=== PATIENT | female | born 1935 | race Caucasian/White ===

== ENCOUNTER → 2018-02-04 08:20 | Outpatient (CLI) | payer MEDICARE, MEDICAID, SELFPAY ==
--- NOTE | 2018-02-04 08:26 | MM_ITS ---
MM Dig screening mamm BI w/CAD ORDERING PHYSICIAN : Daphne Ignacio MD PATIENT AGE: 82 years GENDER: Female COMPARISON: Bilateral mammogram August 2015, March 04, 2015. Also September 2009 Bilateral breast ultrasound February 2015 and August 2015 INDICATION: ITS.REASON: SCREENING TECHNIQUE: Standard CC and MLO images were obtained. R2 CAD reviewed. FINDINGS: Mild asymmetric breast with areas of moderate breast density where there is somewhat decreased sensitivity. The fibrocystic changes and density make this a somewhat difficult breasts to evaluate but no significant new findings evident.. Follow-up in one year adequate RIGHT BREAST:No significant new findings.. Areas of density previously noted are again seen and stable or less evident Stable small round density at the far upper-outer quadrant left breast, measuring 6.5 mm is again noted stable since 2014. An stable since even studies from 2009. Follow-up in one year adequate LEFT BREAST:There is been regression of the previously identified cysts densities at the 12 & 3 o'clock position left breast since 1999 studies. Residual minimal density towards lateral left breast remain similar previous studies dating back to 2009, and can be followed in one year.. IMPRESSION: . No significant new findings. Regression of cystsat the left breast since 2015 and 2014 . Bilateral follow-up one year again recommended BI-RADS Category: 2 Benign Finding(s) RECOMMENDED FOLLOW-UP: 1YR 1 YEAR FOLLOW-UP (A letter has been sent to the patient regarding results of the study.)
== END ==
PROVIDERS: Family Provider Family Medicine; PCP Family Medicine; Visit Provider Family Medicine
DX: Z12.31 Encounter for screening mammogram for malignant neoplasm of breast (principal)
CPT/HCPCS: 77067

== ENCOUNTER → 2018-12-28 12:23 | Outpatient (CLI) | payer MEDICARE, MEDICAID, SELFPAY ==
--- NOTE | 2018-12-28 | NVE_ITS ---
Venous Exam Indications: 729.5 Pain in limb. 782.3 Edema. IMPRESSIONS 1. There is no evidence of significant Reflux. 2. No evidence of deep or superficial vein thrombosis involving the right lower extremity and left lower extremity Complete lower extremity venous duplex evaluation. Doppler flow study including spectral analysis, color and trammell scale imaging. Location: Vascular laboratory. Patient status: Outpatient. Incidental findings: A conspicuous lymph is noted incidentally on the right. A conspicuous lymph is noted incidentally on the left. Tables: Venous flow and imaging: + +-------+ + + Location Overall Flow properties Comments + +-------+ + + Right common femoral Patent Normal phasicity; spontaneous; normal augmentation; compressible + +-------+ + + Right saphenofemoral Patent Compressible junction + +-------+ + + Right profunda femoral Patent Compressible + +-------+ + + Right femoral Patent Normal phasicity; spontaneous; normal augmentation; compressible; no reflux + +-------+ + + Right greater Patent Normal phasicity; saphenous spontaneous; normal augmentation; compressible + +-------+ + + Right popliteal Patent Normal phasicity; spontaneous; normal augmentation; compressible + +-------+ + + Right posterior tibial Patent Compressible Difficult to image. + +-------+ + + Right peroneal Patent Compressible Difficult to image. + +-------+ + + Right gastrocnemius Patent Compressible + +-------+ + + Right soleal Patent Compressible + +-------+ + + Left common femoral Patent Normal phasicity; spontaneous; normal augmenta
== END ==
PROVIDERS: PCP Family Medicine; Visit Provider Family Medicine
DX: R60.0 Localized edema (principal)
CPT/HCPCS: 93970

== ENCOUNTER → 2019-01-05 16:05 | Outpatient (CLI) | payer MEDICARE, MEDICAID, SELFPAY ==
[2019-01-05 19:18] LABS: Blood Urea Nitrogen 42 mg/dL (7-18); Creatinine,Serum 1.85 mg/dL (0.55-1.02); Estimated Glomerular Filt Rate 26 ml/min (>60); GFR (African American) 32 ML/MIN (>60)
== END ==
PROVIDERS: Visit Provider Family Medicine
DX: R59.0 Localized enlarged lymph nodes (principal)
CPT/HCPCS: 36415; 82565; 84520

== ENCOUNTER → 2019-01-09 08:57 | Outpatient (CLI) | payer MEDICARE, MEDICAID, SELFPAY ==
--- NOTE | 2019-01-09 09:13 | CT_ITS ---
Procedure: CT ABDOMEN PELVIS WO CON CLINICAL INDICATION: EDEMA,INGUINAL LYMPHADENOPATHY COMPARISON: No exams were available for comparison TECHNIQUE: . Readi-Cat oral contrast was utilized. No IV contrast utilized due to poor renal function. GFR =26 Axial images obtained with sagittal and coronal reformats. All CT scans at the facility use one or more dose reduction, viz: automated exposure control, ma/kV adjustment per patient size (including targeted exams where dose is matched to indication, i.e. head), or iterative reconstruction technique. FINDINGS: Lower thorax: No acute finding calcified granulomas at right lung base. Minimal scarring. Slight deformity of right chest with old rib fractures reflecting old trauma right chest. Heart upper normal size. Small hiatal hernia likely accounts for the fullness seen here near GE junction. Mild reflux of contrast into the distal esophagus with mild wall thickening at GE junction, distal esophagus. Correlation required The lack of IV contrast does decrease sensitivity somewhat Liver. No focal lesions of the liver but there are prominent dilated intrahepatic biliary ducts and dilated common duct common duct appears to measure up to 2.5 cm on axial image 33 coronal 31-35. The common duct is dilated down to the ampulla but I see no mass or calcification here by CT survey but correlation with LFTs and bilirubin required.. Any old studies would be helpful if available elsewhere Spleen appears normal in size. Pancreas atrophic. No lesions. No inflammation evident. Adrenals are no significant finding. Kidneys. No urinary tract calculi. Generous extra renal pelvis bilaterally but no oscar obstruction and the ureters appear normal in course and calibre Pelvis with previous hysterectomy. No adnexal masses. No intrapelvic iliac adenopathy. No retroperitoneal adenopathy normal mesenteric adenopathy. Old midline incision noted Inguinal regions The left groin demonstrates multiple serpiginous densities which on coronal view, appear to be related to varicosities. However also appears to be a enlarged fairly fatty node here at the left groin is well measuring up to 5 cm in length. The other is also a generous fatty noted at the right groin measuring just over 4 cm length. The both right and left enlarged inguinal node contain a fairly fatty appearing hilum with only subtle density seen in region medullary fat bilaterally with cortex upper normal thickness.-I would suggest ultrasound evaluation of these lymph nodes to further evaluate. This could also determine if FNA aspiration feasible if these nodes should appear suspicious under ultrasound, particularly since since patient cannot receive IV contrast. The varicosities on left groin can also be further surveyed (the varicosities left groin should be surveyed with bilateral groin ultrasound however if not with a follow-up duplex Doppler lower extremity with attention groin may be of benefit) Small fat containing left inguinal hernia also noted accounting for the slight bulging the through the mildly dilated left inguinal ring. No inflammation. No bowel loops. So likely very small fat containing right inguinal hernia right with mild bulging fat right inguinal region associated Prominent stool is seen at the cecum and large bowel with generous stool in gas at the transverse colon and proximal descending colon. Scattered diverticula at the descending colon and sigmoid colon but no diverticulitis. No free fluid no free air in abdomen or pelvis. Small bowel unremarkable. Normal ileum unremarkable. Appendix is been removed. Diffuse atherosclerotic calcification tortuous aorta. No aneurysm. Bones: Prominent degenerative changes lumbar spine
== END ==
PROVIDERS: PCP Family Medicine; Visit Provider Family Medicine
DX: R60.0 Localized edema (principal); R59.0 Localized enlarged lymph nodes
CPT/HCPCS: 74176

== ENCOUNTER → 2019-01-25 13:38 | Outpatient (CLI) | payer MEDICARE, MEDICAID, SELFPAY ==
--- NOTE | 2019-01-25 13:42 | US_ITS ---
PROCEDURE: US EXTREMITY RT LIMITED CLINICAL INDICATION: LYMPHADENOPATHY INGUINAL COMPARISON: CT ABDOMEN PELVIS WO CON from 01/09/2019 US EXTREMITY LT LIMITED from 01/25/2019 FINDINGS: Right groin: There is a 4 x 2 cm right inguinal lymph node mostly fatty replaced with a 1.8 mm thick cortex. No abnormal fluid collections are evident. Left groin: There is a 5 x 1 cm lymph node in the left groin mostly fatty replaced with a 3 mm cortex. No abnormal fluid collections. IMPRESSION: Bilateral inguinal adenopathy Dictated by: Davey Arcos MD 01/25/2019 17:59 <Electronically signed by Davey Arcos MD in [place]> 01/25/2019 17:59
== END ==
PROVIDERS: PCP Family Medicine; Visit Provider Family Medicine
DX: R59.0 Localized enlarged lymph nodes (principal)
CPT/HCPCS: 76882

== ENCOUNTER → 2019-02-17 09:35 | Outpatient (CLI) | payer MEDICARE, MEDICAID, SELFPAY ==
--- NOTE | 2019-02-17 09:39 | US_ITS ---
PROCEDURE: US BIOPSY GUIDANCE CLINICAL INDICATION: enlarged groin lymph nodes COMPARISON: US EXTREMITY RT LIMITED from 01/25/2019 FINDINGS: Technique: Following obtaining informed consent under aseptic conditions and local anesthesia with 1 percent buffered lidocaine a 21 gauge needle was inserted into the largest node in the right groin area and FNA was performed. Following this, 18 gauge needle was inserted into this node under sonographic guidance and 4 passes were made into the node documented by ultrasound. The patient tolerated the procedure well without evidence of immediate complication. Cytology: Polymorphous lymphocytes present Pathology: Fibroadipose tissue with scant crush lymphocytes IMPRESSION: Ultrasound-guided FNA and core biopsy of the right breast showed fibroadipose tissue with scant crush lymphocytes. No immediate complications Please see pathology report Dictated by: Davey Arcos MD 02/18/2019 09:38 Electronically signed by Davey Arcos MD in [place] 03/03/2019 10:23
== END ==
PROVIDERS: PCP Family Medicine; Visit Provider Surgery
DX: R59.1 Generalized enlarged lymph nodes
CPT/HCPCS: 10005; 76942; 88305

== ENCOUNTER → 2019-03-15 12:57 | Outpatient (CLI) | payer MEDICARE, MEDICAID, SELFPAY ==
--- NOTE | 2019-03-15 13:00 | US_ITS ---
PROCEDURE: US BIOPSY GUIDANCE CLINICAL INDICATION: Repeat ultrasound-guided core biopsy Adenopathy COMPARISON: US EXTREMITY LT LIMITED from 01/25/2019 FINDINGS: Following obtaining informed consent under aseptic conditions and local anesthesia with 1 percent buffered lidocaine, fine needle aspiration was performed of the mildly prominent node in the right inguinal region. Following this, 5 core biopsies were performed with 18 gauge Bird-Cut needle. Dr. Jc the pathologist was present and confirmed adequacy of the specimen. Cytology: Negative for malignant cells most consistent with benign reactive lymphadenopathy. Pathology: Mostly fibrous connective tissue. Scant crush lymphoid stroma. Flow cytometry was performed. Please see that report IMPRESSION: Uneventful ultrasound-guided right groin fine needle aspiration and core biopsy showing findings as described above Dictated by: Davey Arcos MD 03/17/2019 10:34 Electronically signed by Davey Arcos MD in [place] 03/23/2019 16:14
== END ==
PROVIDERS: PCP Family Medicine; Visit Provider Surgery
DX: R59.0 Localized enlarged lymph nodes (principal)
CPT/HCPCS: 10005; 76942; 88172; 88173; 88305

== ENCOUNTER → 2019-03-29 15:25 | Outpatient (CLI) | payer MEDICARE, MEDICAID, SELFPAY ==
[2019-03-29 16:18] LABS: Basophils # 0.1 K/mm3 (0-0.2); Basophils % 1.1 % (0.1-2.0); Eosinophils # 0.2 K/mm3 (0.0-0.4); Eosinophils % 2.9 % (0.1-12.0); Hemoglobin 13.1 g/dL (12.2-16.2); Lymphocytes # 1.5 K/mm3 (0.7-4.5); Lymphocytes % 24.8 % (10-50); Mean Corpuscular HGB Conc 31.1 g/dL (31.8-35.4); Mean Corpuscular Hemoglobin 28.9 pg (27.0-31.2); Mean Corpuscular Volume 92.9 fl (81-99); Mean Platelet Volume 10.1 fl (7.4-10.4); Monocytes # 0.2 K/mm3 (0.1-1.0); Monocytes % 3.9 % (1.7-9.3); Neutrophils # 4.1 K/mm3 (1.8-7.8); Neutrophils % 67.3 % (37.0-80.0); Platelet Count 205 K/mm3 (142-424); Red Blood Count 4.52 M/mm3 (4.20-5.40); Red Cell Distribution Width 13.9 % (11.5-17.5); White Blood Count 6.1 K/mm3 (4.8-10.8)
[2019-03-29 18:50] LABS: Anion Gap 11.6 mEq/L (5-15); Blood Urea Nitrogen 30 mg/dL (7-18); Calcium 9.4 mg/dL (8.5-10.1); Carbon Dioxide 34 mmol/L (21.0-32.0); Chloride 95 mmol/L (98-107); Creatinine,Serum 1.74 mg/dL (0.55-1.02); Estimated Glomerular Filt Rate 28 ml/min (>60); GFR (African American) 34 ML/MIN (>60); Glucose 89 mg/dL (74-106); Potassium 3.6 mmoL/L (3.5-5.1); Sodium 137 mmol/L (136-145)
== END ==
PROVIDERS: Visit Provider Surgery
DX: R59.0 Localized enlarged lymph nodes (principal); S09.90XA Unspecified injury of head, initial encounter
CPT/HCPCS: 36415; 80048; 85025

== ENCOUNTER → 2019-06-01 11:08 | Outpatient (CLI) | payer MEDICARE, MEDICAID, SELFPAY ==
--- NOTE | 2019-06-01 11:11 | US_ITS ---
PROCEDURE: US EXTREMITY LT LIMITED CLINICAL INDICATION: TRAUMATIC SEROMA OF LT THIGH COMPARISON: US EXTREMITY LT LIMITED from 04/10/2019 FINDINGS: Complex bilobular collection is present in the left inner upper thigh. There is heterogeneous internal echogenicity which has developed in the interval and may be due to underlying blood clot. The abnormality measures approximately 12 x 6 cm and is better circumscribed on today's exam. Previously the collection measured approximately 9 by 3.6 cm. IMPRESSION: Heterogeneous collection in the left inner upper thigh within the subcutaneous tissues. This is slightly larger compared to the previous exam now with more complex echogenicity which may be due to underlying blood clot. Abscess would be included in the differential diagnosis. Dictated by: Davey Arcos MD 06/01/2019 18:16 Electronically signed by Davey Arcos MD in [place] 06/01/2019 18:16
== END ==
PROVIDERS: PCP Family Medicine; Visit Provider Family Medicine
DX: T79.2XXD Traumatic secondary and recurrent hemorrhage and seroma, subsequent encounter (principal)
CPT/HCPCS: 76882

== ENCOUNTER → 2019-11-30 11:14 | Outpatient (CLI) | payer MEDICARE, MEDICAID, SELFPAY | PROVIDERS: Visit Provider Family Medicine | DX: M79.661 Pain in right lower leg (principal) | CPT/HCPCS: 87070; 87205 ==

== ENCOUNTER 2019-12-07 09:00 | Outpatient (RCR) | payer MEDICARE, MEDICAID, SELFPAY ==
--- NOTE | 2019-11-21 14:03 | HMH.PTOPWND ---
Rehab Outpt Wound Evaluation Rehab OP Wound Evaluation Start: 11/21/19 13:03 Freq: Status: Active Protocol: Document 11/21/19 13:52 TAYLER (Rec: 11/21/19 14:02 PHORJAMES [id number]) Electronically Signed By Fabien Rutledge, PT 11/21/19 13:52 Subjective/History History History Pt is 84 yowf who presents with B LE edema, L > R, for several years, but much worse x 2-3 wks. She has hx of multiple vein procedures B LE with previous stripping procedure on the L. She had L inguinal LN removal performed in March and then developed complications of a likely large hematoma in the L upper thigh. She now reports significant increase in pain in the L lower leg with increased calor and erythema. She reports her L lower leg is very tender to even light touch and is much more swollen than usual. She reports hx of HL, HTN. Subjective Subjective Pain at rest 5/10, 4/4 tendernes to palpation throughout the L lower leg. Lymphedema Eval Classification of Lymphedema Secondary Lymphedema Yes: CVI Stemmer's sign Stemmer's Sign no Stage of Lymphedema Lymphedema stages Stage I (Pitting edema, reduces w/ elevation, no fibrosis) Skin Changes Dry Skin Yes Redness Yes: moderate Discoloration of Skin Yes Other Changes Yes: telangiectasis Pain Scale Pain Scale (0-10) 5 Affected Extremities Areas Affected by Lymphedema/Edema Right Lower Extremity,Left Lower Extremity Manual Lymphatic Drainage Treatment Area MLD Treatment Area Right Lower Extremity,Left Lower Extremity Wound Problems/Impairments Impairments Problems/Impairmments Palpation Tenderness,Impaired Range of Motion,Impaired Strength,Impaired Endurance, Impaired Transfers,Impaired Gait Pattern,Impaired Walking, Impaired Standing,Increased Edema,Lymphedema Present, S
== END 2019-12-07 09:05 | disposition home or self-care (01) ==
LOC: PT 09:00
PROVIDERS: PCP Family Medicine; Visit Provider Family Medicine
DX: I89.0 Lymphedema, not elsewhere classified (principal)
CPT/HCPCS: 97140; 97163

== ENCOUNTER 2019-12-07 19:10 | Emergency (ER) | payer MEDICARE, MEDICAID, SELFPAY ==
[2019-12-07 19:11] VITALS: BP 132/69; PULSE 72; RESP 16; TEMP 37.1; O2SAT 95; BMI 28.3
--- NOTE | 2019-12-07 19:16 | HMH.EDGENADL ---
ED Disposition Clinical Impression: Laceration of right lower leg Qualifiers: Encounter type: initial encounter Qualified Code(s): S81.811A - Laceration without foreign body, right lower leg, initial encounter Disposition: Home, Self-Care Condition on Discharge: Good Instructions: DI for Laceration Repair Additional Instructions: Additional instructions for LACERATION: Clean the wound daily with soap and water. You may shower. Apply a thin film of antibiotic ointment such as neosporin or triple antibiotic after showering and apply a bandage. Avoid submerging the wound, no swimming. See your primary care physician or return to the [facility]gent [facility] in 14 days for suture removal. The [facility]gent Treatment Center is open 1 PM to 9 PM 7 days a week. Return if any signs of infection including increasing pain, pus drainage, swelling, redness, red streaks, or fever. Referrals: Daphne Ignacio MD [Primary Care Provider] - - Critical Care Critical Care Time: No Attestation: On 12/07/19, the high probability of a clinically significant, sudden or life threatening deterioration of the following system(s) required my full and direct attention, intervention and personal management. The time I documented below is in addition to time spent performing reported procedures but includes the following listed in this critical care notation. Medical Decision Making - Trey Inquiry Pt receiving controlled substance: No Vital Signs: 12/07/19 19:11 Temperature 98.7 F Temperature Source Oral Pulse Rate [Right Brachial] 72 Respiratory Rate 16 Blood Pressure [Right Arm] 132/69 Blood Pressure Mean [Right Arm] 90 Blood Pressure Source [Right Arm] Automatic Cuff Blood Pressure Position [Right Arm] Sitting 02 Sat by Pulse Oximetry 95 Oxygen Delivery Method Room Air Orders (Tests/Meds): ED MEDICATIONS Discontinued Medications Generic Name Dose Route Start Last Admin Trade Name Freq PRN Reason Stop Dose Admin Lidocaine/Epinephrine 10 ml 12/07/19 19:22 Lidocaine 2% W/Epi 1:100,000 20ml Vial IJ 12/07/19 19:23 ONCE ONE Lidocaine/Epinephrine 20 ml 12/07/19 19:25 Lidocaine 1% W/Epi 1:100,000 20ml Vial SQ 12/07/19 19:26 ONCE ONE General Adult HPI - General Chief complaint: Wound/Laceration Stated complaint: laceration Time Seen by Provider: 12/07/19 19:16 - History of Present Illness HPI narrative: The patient is brought in by ambulance for laceration on her right leg. She says that she was tripped by her dog and landed on a carpeted floor. She says the leg did not strike anything sharp. She is requesting medication for pain. She is on morphine and hydrocodone at home because of a bad back, she says. She denies any other injuries. Patient states that she has chronic cellulitis in her legs, chronic lymphedema. She goes to lymphedema clinic and in fact went there today for treatment. She says that she has chronic weakness. - Related Data Home Medications Medication Instructions Recorded Confirmed duloxetine 30 mg capsule,delayed 30 mg PO DAILY 02/08/19 04/19/19 release furosemide 20 mg tablet 20 mg PO DAILY 02/08/19 04/19/19 hydrocodone 5 mg-acetaminophen 325 1 tab PO QHS PRN 02/08/19 04/19/19 mg tablet lamotrigine 150 mg tablet 150 mg PO DAILY 02/08/19 04/19/19 lamotrigine 25 mg tablet 50 mg PO BID 02/08/19 04/19/19 levothyroxine 88 mcg tablet 88 mcg PO DAILY 02/08/19 04/19/19 morphine 30 mg tablet,extended 30 mg PO Q12H 02/08/19 04/19/19 release omeprazole 20 mg capsule,delayed 20 mg PO DAILY 02/08/19 04/19/19 release polyethylene glycol 3350 17 8.5 g PO DAILY PRN 02/08/19 04/19/19 gram/dose oral powder simvastatin 40 mg tablet 40 mg PO QHS 02/08/19 04/19/19 triamterene 37.5 1 cap PO DAILY 02/08/19 04/19/19 mg-hydrochlorothiazide 25 mg capsule Previous Rx's Medication Instructions Recorded cephALEXin [cephALEXin 500mg 500 mg PO Q6H #40 cap 04/10/19 c
--- NOTE | 2019-12-07 19:20 | XR_ITS ---
PROCEDURE: XR TIBIA FIBULA RT 2V CLINICAL INDICATION: fall with lac PAIN WITH INJURY COMPARISON: No exams were available for comparison FINDINGS: No fracture or dislocation. No lytic or blastic change. There is normal mineralization. 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 LACERATION IS PRESENT INVOLVING THE ANTERIOR ASPECT OF THE LEG AT THE MID TIBIAL REGION Other findings:None. IMPRESSION: Prior total knee replacement with laceration of the anterior mid leg. No acute fracture Dictated by: Davey Arcos MD 12/07/2019 20:08 Electronically signed by Davey Arcos MD in [place] 12/07/2019 20:08
[2019-12-07 19:50] VITALS: BP 149/59; PULSE 75; RESP 16; O2SAT 99
[2019-12-07 20:26] VITALS: BP 153/70; PULSE 73; RESP 16; TEMP 36.8; O2SAT 98
--- NOTE | 2019-12-07 20:41 | PC.NURSE ---
wound care per wandy at this time. pt states she has supplies at the house
[2019-12-07 21:00] VITALS: BP 145/66; PULSE 72; RESP 16; O2SAT 98
[2019-12-07 21:11] VITALS: BP 132/69; PULSE 73; RESP 14; TEMP 36.7; O2SAT 98
== END 2019-12-07 21:13 | disposition home or self-care (01) ==
PROVIDERS: Emergency Provider Emergency Medicine; PCP Family Medicine
DX: S81.811A Laceration without foreign body, right lower leg, initial encounter (principal); W01.10XA Fall on same level from slipping, tripping and stumbling with subsequent striking against unspecified object, initial encounter; Y92.019 Unspecified place in single-family (private) house as the place of occurrence of the external cause; K21.9 Gastro-esophageal reflux disease without esophagitis; E78.5 Hyperlipidemia, unspecified; Z79.899 Other long term (current) drug therapy; Z88.2 Allergy status to sulfonamides; Z88.8 Allergy status to other drugs, medicaments and biological substances
CPT/HCPCS: 12004; 73590; 99283

== ENCOUNTER → 2020-02-09 14:17 | Outpatient (CLI) | payer MEDICARE, MEDICAID, SELFPAY ==
--- NOTE | 2020-02-09 14:20 | CA_ITS ---
APPROVED REPORT Bilateral Lower Extremity Venous Study for DVT. 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 Indications Lower Extremity Pain: Bilateral Lower Extremity Edema: Bilateral PT HAS LYMPHEDEMA, PT HAS GOLF BALL SIZED KNOT PROXIMAL MEDIAL THIGH X SEVERAL MTHS Vein Imaging CFV (R): compressive, spontaneous, phasic, augmentation FEM (R): compressive, spontaneous, phasic, augmentation POP (R): compressive, spontaneous, phasic, augmentation PTV (R): Compressible GSV (R): Compressible Peroneals (R):Compressible GAS (R): Compressible CFV (L): compressive, spontaneous, phasic, augmentation FEM (L): compressive, spontaneous, phasic, augmentation POP (L): compressive, spontaneous, phasic, augmentation PTV (L): Compressible GSV (L): Compressible Peroneals (L):Compressible GAS (L): Compressible Findings Study demonstrates no evidence of DVT of the bilateral lower extremities. Study demonstartes no evidence of SVT of the bilateral lower extremities. 9.0 cm cystic lesion seen proximal medial left thigh. Conclusion Study demonstrates no evidence of DVT of the bilateral lower extremities. Study demonstartes no evidence of SVT of the bilateral lower extremities. 9.0 cm cystic lesion seen proximal medial left thigh. May be better evaluated with MRI Critical Notification Physician Notified Date: 02/09/2020 Time: 15:02 Physician Name: Elizabeth Aguiar Electronically signed by : Davey Arcos MD 02/09/2020 15:43:40
== END ==
PROVIDERS: PCP Family Medicine; Visit Provider Nurse Practitioner
DX: R60.1 Generalized edema (principal)
CPT/HCPCS: 93970

== ENCOUNTER → 2020-08-23 11:04 | Outpatient (CLI) | payer MEDICARE, MEDICAID, SELFPAY ==
--- NOTE | 2020-08-23 11:10 | MM_ITS ---
PROCEDURE: MM DIG SCREENING MAMM BI W/CAD Digital Breast Tomosynthesis Included CLINICAL INDICATION: SCREENING There is a history of breast cancer in the patient's niece. The patient was very difficult to position, she complains of a palpable area right lateral breast. . COMPARISON: MG DMSB DIG MAMM-SCREEN POLINA from 03/04/2015 MG DMDB DIG MAMM-DX POLINA from 09/03/2015 MG SCBI MM Dig screening mamm BI w/CAD from 02/04/2018 TECHNIQUE: Standard CC and MLO images and 3D Tomosynthesis was obtained. R2 CAD reviewed. FINDINGS: Prominent somewhat heterogenic fibroglandular densities are seen in the subareolar regions and central portions of both breast. There is moderate arterial calcification in each breast. There is a stable round benign-appearing density upper-outer quadrant right breast. There is slightly more prominent fibroglandular densities upper outer quadrant right breast when compared to the left. There is somewhat inadequate visualization of the axilla in each breast due to difficulty in positioning the patient. There is no new or suspicious lesion in either breast and no suspicious microcalcifications. However if the patient complains of a new palpable lump right breast as mentioned in the history than patient should return for ultrasound right breast and spot compressions of the asymmetric glandular elements for additional evaluation. IMPRESSION: Moderate heterogenic breast density with asymmetric fibroglandular densities right breast as noted and complaint of palpable lump right lateral breast BI-RAD Category: 0 Need Additional Imaging Evaluation FOLLOW-UP: IMM Immediate Follow-up Recommended (A letter has been sent to the patient regarding results of the study.) Dictated by: Dr. Montez Keith MD 08/29/2020 11:44 Dr. Montez Keith MD in [place] 08/29/2020 11:44
== END ==
PROVIDERS: PCP Family Medicine; Visit Provider Family Medicine
DX: Z12.31 Encounter for screening mammogram for malignant neoplasm of breast (principal)
CPT/HCPCS: 77063; 77067

== ENCOUNTER → 2020-09-13 14:02 | Outpatient (CLI) | payer MEDICARE, MEDICAID, SELFPAY ==
--- NOTE | 2020-09-13 14:07 | US_ITS ---
PROCEDURE: MM DIG MAMM DX UNILAT RT CAD Digital Breast Tomosynthesis Included CLINICAL INDICATION: ABN MAMM Palpable abnormality right breast COMPARISON: US BR US BREAST-RT COMPLETE W/AXILLA from 09/03/2015 MG DMDB DIG MAMM-DX POLINA from 09/03/2015 MG SCBI MM Dig screening mamm BI w/CAD from 02/04/2018 MG MM DIG SCREENING MAMM BI W/CAD from 08/23/2020 US US BREAST RT COMPLETE from 09/13/2020 TECHNIQUE: Spot compression views and right breast ultrasound FINDINGS: Average fibroglandular tissue benign-appearing calcifications. Benign appearing nodule upper outer right breast stable. No malignant appearing mass or malignant-appearing microcalcification. Right breast ultrasound: 6 mm well-circumscribed hypoechoic nodule 10 o'clock likely corresponding to the benign-appearing nodule on the mammogram this does contain some low level internal echoes. This had a similar appearance on 09/03/2015. No suspicious nodule evident. IMPRESSION: BI-RAD Category: 2 Benign Finding(s) FOLLOW-UP: 1YR 1 Year Follow-up A negative mammogram and negative ultrasound does not exclude the possibility malignancy. If there is indeed a palpable abnormality then it should be managed on clinical basis. (A letter has been sent to the patient regarding results of the study.) Dictated by: Davey Arcos MD 09/14/2020 18:30 Davey Arcos MD in [place] 09/14/2020 18:30
== END ==
PROVIDERS: PCP Family Medicine; Visit Provider Physician Assistant
DX: R92.8 Other abnormal and inconclusive findings on diagnostic imaging of breast (principal)
CPT/HCPCS: 76641; 77061; 77065; G0279

== ENCOUNTER 2022-09-05 13:58 | Emergency (ER) | payer MEDICARE, MEDICAID, SELFPAY ==
--- NOTE | 2022-09-05 14:01 | HMH.EDGENADL ---
Discharge Plan Disposition Patient Disposition: Home, Self-Care Prescriptions Prescriptions: No Action duloxetine [Cymbalta] 30 mg capsule,delayed release(DR/EC) 30 mg PO DAILY hydrocodone-acetaminophen [[place]] 5-325 mg tablet 1 tab PO QHS PRN (Reason: pain) morphine [MS Contin] 30 mg tablet extended release 30 mg PO Q12H omeprazole 20 mg capsule,delayed release(DR/EC) 20 mg PO DAILY furosemide [Lasix] 20 mg tablet 20 mg PO DAILY levothyroxine [Synthroid] 88 mcg tablet 88 mcg PO DAILY polyethylene glycol 3350 17 gram/dose powder 8.5 g PO DAILY PRN (Reason: bowels) triamterene-hydrochlorothiazid 37.5-25 mg capsule 1 cap PO DAILY simvastatin 40 mg tablet 40 mg PO QHS lamotrigine 25 mg tablet 50 mg PO BID lamotrigine 150 mg tablet 150 mg PO DAILY cephalexin 500 MG capsule 500 mg PO Q6H Qty: 40 0RF Referrals Follow up/Referrals: Daphne Ignacio MD [Primary Care Provider] - See instructions Activity Restrictions/Add. Instructions Additional Instructions/Restrictions: Please get your refill of medications picked up at pharmacy as instructed. Clinical Impressions Clinical Impression: Trigeminal neuralgia Discharge ED Provider: Gonzalo Daniel General Adult HPI General Chief complaint: Neuro Symptoms/Deficit Stated complaint: Possible nerve damage Time Seen by Provider: 09/05/22 14:01 History of Present Illness HPI narrative: Patient is an 87-year-old woman with a history of chronic trigeminal neuralgia who recently ran out of her medications and has had an exacerbation of her symptoms. States that pain is on the right side of her face in the V2 and V3 distribution this is similar to spasms and exacerbation she has had in the past. She has been followed at [facility] with oral maxillofacial surgery and dentistry and per their notes she had been getting neuro gel and Orabase as well as PLO gel and ran out of this and try to call her doctor today and they were able to get it refilled and try to call her primary care doctor then told her to come the emergency room. She states there is nothing out of the ordinary from this from an exacerbation standpoint in the past and the pain is severe. Related Data Home Medications Medication Instructions Recorded Confirmed duloxetine 30 mg capsule,delayed 30 mg PO DAILY Depression 02/08/19 04/19/19 release (Cymbalta) furosemide 20 mg tablet (Lasix) 20 mg PO DAILY Edema 02/08/19 04/19/19 hydrocodone 5 mg-acetaminophen 325 1 tab PO QHS PRN pain 02/08/19 04/19/19 mg tablet ([place]) lamotrigine 150 mg tablet 150 mg PO DAILY bowel 02/08/19 04/19/19 lamotrigine 25 mg tablet 50 mg PO BID bowel 02/08/19 04/19/19 levothyroxine 88 mcg tablet 88 mcg PO DAILY thyroid 02/08/19 04/19/19 (Synthroid) morphine 30 mg tablet,extended 30 mg PO Q12H Pain 02/08/19 04/19/19 release (MS Contin) omeprazole 20 mg capsule,delayed 20 mg PO DAILY GERD 02/08/19 04/19/19 release polyethylene glycol 3350 17 8.5 g PO DAILY PRN bowels 02/08/19 04/19/19 gram/dose oral powder simvastatin 40 mg tablet 40 mg PO QHS cholestrol 02/08/19 04/19/19 triamterene 37.5 1 cap PO DAILY bp 02/08/19 04/19/19 mg-hydrochlorothiazide 25 mg capsule Previous Rx's Medication Instructions Recorded cephalexin 500 mg capsule 500 mg PO Q6H #40 caps 04/10/19 Allergies Allergy/AdvReac Type Severity Reaction Status Date / Time ibuprofen Allergy Mild Verified 04/19/19 10:54 Sulfa (Sulfonamide Allergy Mild Verified 04/19/19 10:54 Antibiotics) meperidine Allergy Unknown Verified 04/19/19 10:54 piroxicam Allergy Unknown Verified 04/19/19 10:54 PFS PFS Disclaimer: The information contained in this section may have been updated after the patient was seen, as this information can be updated by other users. Social History Smoking Status: Never smoker alcohol intake: never substance use type
[2022-09-05 14:06] VITALS: BP 158/69; PULSE 96; RESP 18; O2SAT 94
[2022-09-05 14:15] VITALS: BP 158/69; PULSE 95; RESP 20; TEMP 37.7; O2SAT 92; BMI 29.2
[2022-09-05 14:51] VITALS: BP 118/51; PULSE 96; RESP 18; O2SAT 98
[2022-09-05 15:10] VITALS: BP 117/54; PULSE 94; RESP 16; TEMP 37.7; O2SAT 98
== END 2022-09-05 15:12 | disposition home or self-care (01) ==
PROVIDERS: Emergency Provider Emergency Medicine; PCP Family Medicine
DX: G50.0 Trigeminal neuralgia (principal)
CPT/HCPCS: 99283; 99284

== ENCOUNTER 2023-05-16 05:25 | Emergency (ER) | payer MEDICARE, MEDICAID, SELFPAY ==
[2023-05-16] VITALS (13 sets, daily range): BP systolic 115–163; BP diastolic 52–87; PULSE 64–74; RESP 12–20; TEMP 36.5; O2SAT 91–97; BMI 25.0
--- NOTE | 2023-05-16 05:10 | XR_ITS ---
PROCEDURE INFORMATION: Exam: XR Chest Exam date and time: 05/16/2023 5:23 AM Age: 87 years old Clinical indication: Pain; Chest pressure; Additional info: Cp TECHNIQUE: Imaging protocol: Radiologic exam of the chest. Views: 1 view. COMPARISON: CR XR KUB 05/16/2023 5:23 AM FINDINGS: Lungs: There is minimal right basilar atelectasis. Otherwise the lungs appear clear. Pleural spaces: Unremarkable. No pleural effusion. No pneumothorax. Heart/Mediastinum: Unremarkable. No cardiomegaly. Bones/joints: Multiple old appearing right rib fractures are identified. IMPRESSION: No evidence of acute pulmonary process.
--- NOTE | 2023-05-16 05:14 | ECG_ITS ---
APPROVED REPORT Exam: Resting ECG HR:71 bpm ECG Measurements Heart Rate 71 AXES QRSd 101 QRS 8 QT 388 T 30 QTc 410 Conclusion SUPRAVENTRICULAR RHYTHM LOW QRS VOLTAGE IN PRECORDIAL LEADS [QRS DEFLECTION < 1.0 mV IN CHEST LEADS] SEPTAL MYOCARDIAL INFARCTION , OF INDETERMINATE AGE [40+ ms Q WAVE IN V1/V2] ABNORMAL ECG UNCONFIRMED REPORT Electronically signed by : David Bower MD 05/19/2023 09:07:36
--- NOTE | 2023-05-16 05:19 | XR_ITS ---
PROCEDURE INFORMATION: Exam: XR Abdomen Exam date and time: 05/16/2023 5:23 AM Age: 87 years old Clinical indication: Abdominal pain; Additional info: Epigastric discomfort TECHNIQUE: Imaging protocol: Radiologic exam of the abdomen. Views: Frontal supine view of the abdomen. 1 View. COMPARISON: CT ABDOMEN PELVIS WO CON 01/09/2019 9:28 AM FINDINGS: Gastrointestinal tract: There is moderate stool seen throughout the colon. There is no evidence of bowel obstruction. Bones/joints: There is multilevel advanced degenerative disc disease and scoliosis identified. IMPRESSION: No evidence of bowel obstruction or acute process.
[2023-05-16 05:54] LABS: Coronavirus 19, PCR Not Detected (NotDetected); Influenza A, PCR Not Detected (NotDetected); Influenza B, PCR Not Detected (NotDetected)
[2023-05-16 05:57] LABS: Basophils % 0.5 % (0.1-2.0); Eosinophils # 0.2 K/mm3 (0.0-0.4); Eosinophils % 2.9 % (0.1-12.0); Hematocrit 39.7 % (37.0-47.0); Hemoglobin 12.3 g/dL (12.2-16.2); Lymphocytes # 1.4 K/mm3 (0.7-4.5); Lymphocytes % 18.5 % (10-50); Mean Corpuscular HGB Conc 31.1 g/dL (31.8-35.4); Mean Corpuscular Hemoglobin 30.5 pg (27.0-31.2); Mean Corpuscular Volume 98.1 fl (81-99); Mean Platelet Volume 10.9 fl (7.4-10.4); Monocytes # 0.4 K/mm3 (0.1-1.0); Neutrophils # 5.4 K/mm3 (1.8-7.8); Neutrophils % 73.2 % (37.0-80.0); Platelet Count 133 K/mm3 (142-424); Red Blood Count 4.05 M/mm3 (4.20-5.40); Red Cell Distribution Width 13.7 % (11.5-17.5); White Blood Count 7.4 K/mm3 (4.8-10.8)
[2023-05-16 06:04] LABS: Alanine Aminotransferase 49 U/L (12-78); Alkaline Phosphatase 222 U/L (38-126); Aspartate Amino Transferase 226 U/L (14-36); Bilirubin,Total 0.7 mg/dl (0.2-1.3); Blood Urea Nitrogen 24 mg/dl (7-17); Carbon Dioxide 29 mmol/L (22.0-30.0); Chloride 97 mmol/L (98-107); Creatinine Clearance Estimated 34 mL/min (50-200); Estimated Glomerular Filt Rate 39 ml/min (>60); GFR (African American) 47 ML/MIN (>60)
[2023-05-16 06:05] LABS: Glucose 109 mg/dl (74-100); Total Protein,Serum 7.4 g/dl (6.3-8.2)
[2023-05-16 06:06] LABS: Albumin Level 4.1 g/dl (3.5-5.0); Albumin/Globulin Ratio 1.2 (1.1-1.8); Anion Gap 10.1 mEq/L (5-15); Calcium 8.6 mg/dl (8.4-10.2); Globulin 3.3 g/dL (1.3-3.2); Potassium 4.1 mmoL/L (3.5-5.1); Sodium 132 mmol/L (136-145)
[2023-05-16 06:10] LABS: Lipase 140 U/L (23-300)
[2023-05-16 06:19] LABS: Troponin I < 0.01 ng/ml (0.00-0.034)
--- NOTE | 2023-05-16 06:31 | HMH.EDGENADL ---
Discharge Plan Disposition Chief Complaint: Chest Pain Prescriptions Prescriptions: No Action duloxetine [Cymbalta] 30 mg capsule,delayed release(DR/EC) 30 mg PO DAILY hydrocodone-acetaminophen [[place]] 5-325 mg tablet 1 tab PO QHS PRN (Reason: pain) morphine [MS Contin] 30 mg tablet extended release 30 mg PO Q12H omeprazole 20 mg capsule,delayed release(DR/EC) 20 mg PO DAILY furosemide [Lasix] 20 mg tablet 20 mg PO DAILY levothyroxine [Synthroid] 88 mcg tablet 88 mcg PO DAILY polyethylene glycol 3350 17 gram/dose powder 8.5 g PO DAILY PRN (Reason: bowels) simvastatin 40 mg tablet 40 mg PO QHS lamotrigine 25 mg tablet 50 mg PO BID lamotrigine 150 mg tablet 150 mg PO DAILY Referrals Follow up/Referrals: Provider,Referral, MD [Primary Care Provider] - See instructions Clinical Impressions Clinical Impression: Transaminitis, Epigastric discomfort Discharge ED Provider: Balaji Miles Adult HPI General Chief complaint: Chest Pain Stated complaint: cp Time Seen by Provider: 05/16/23 05:25 Mode of Arrival: EMS Limitations: No Limitations Description of Symptoms (Recalled from ER Triage Doc. by RN): Patient states that she ate raw oinons last night and she is haing epigastic pain, but wants to make sure she is not having a heart attack. History of Present Illness HPI narrative: 87-year-old female presents with epigastric discomfort. She reports that she gets stomach pains when she eats raw onions and she ate raw onion on a burger this evening. She just wants to make sure she is not having a heart attack. She denies any focal shortness of breath or chest pain. She reports that she has not had a bowel movement in a couple of days but this is normal for her. She denies any recent fever or illness. Reports normal p.o. intake, reports no vomiting. 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 Related Data Home Medications Medication Instructions Recorded Confirmed duloxetine 30 mg capsule,delayed 30 mg PO DAILY Depression 02/08/19 05/16/23 release (Cymbalta) furosemide 20 mg tablet (Lasix) 20 mg PO DAILY Edema 02/08/19 05/16/23 hydrocodone 5 mg-acetaminophen 325 1 tab PO QHS PRN pain 02/08/19 05/16/23 mg tablet ([place]) lamotrigine 150 mg tablet 150 mg PO DAILY bowel 02/08/19 05/16/23 lamotrigine 25 mg tablet 50 mg PO BID bowel 02/08/19 05/16/23 levothyroxine 88 mcg tablet 88 mcg PO DAILY thyroid 02/08/19 05/16/23 (Synthroid) morphine 30 mg tablet,extended 30 mg PO Q12H Pain 02/08/19 05/16/23 release (MS Contin) omeprazole 20 mg capsule,delayed 20 mg PO DAILY GERD 02/08/19 05/16/23 release polyethylene glycol 3350 17 8.5 g PO DAILY PRN bowels 02/08/19 05/16/23 gram/dose oral powder simvastatin 40 mg tablet 40 mg PO QHS cholestrol 02/08/19 05/16/23 Allergies Allergy/AdvReac Type Severity Reaction Status Date / Time ibuprofen Allergy Mild Verified 04/19/19 10:54 Sulfa (Sulfonamide Allergy Mild Verified 04/19/19 10:54 Antibiotics) meperidine Allergy Unknown Verified 04/19/19 10:54 piroxicam Allergy Unknown Verified 04/19/19 10:54 PFS PFS Disclaimer: The information contained in this section may have been updated after the patient was seen, as this information can be updated by other users. Social History Smoking Status: Former smoker alcohol intake: never substance use type: denies use current occupational status: unemployed and disabled Travel in the last 8 weeks: None household members: other housing: house caffeine: Yes ROS Obtained: Yes All systems reviewed & no additional complaints except as documented Physical Exam General General appearance: alert and in no apparent distress Head Head exam: atraumatic and normocephalic Eye Eye exam: Present normal appearance, PERRL and EOMI ENT ENT exam: Prese
--- NOTE | 2023-05-16 08:24 | PC.NURSE ---
LAB at to draw second trop
[2023-05-16 08:52] LABS: Troponin I < 0.01 ng/ml (0.00-0.034)
--- NOTE | 2023-05-16 09:01 | PC.NURSE ---
Dr. Solano at BS to update pt on results and POC
--- NOTE | 2023-05-16 09:02 | CT_ITS ---
PROCEDURE INFORMATION: Exam: CT Abdomen And Pelvis With Contrast Exam date and time: 05/16/2023 10:20 AM Age: 87 years old Clinical indication: Abdominal pain; Epigastric; Additional info: Persistent epigastric ruq pain/ elevated lfts TECHNIQUE: Imaging protocol: Computed tomography of the abdomen and pelvis with contrast. Radiation optimization: All CT scans at this facility use at least one of these dose optimization techniques: automated exposure control; mA and/or kV adjustment per patient size (includes targeted exams where dose is matched to clinical indication); or iterative reconstruction. Contrast material: ISOVUE; Contrast volume: 75 ml; Contrast route: IV; REPORTING DATA: Count of CT and Cardiac NM exams in prior 12 months: This patient has received 0 known CTs and 0 known cardiac nuclear medicine studies in the 12 months prior to the current study. COMPARISON: CR XR KUB 05/16/2023 5:23 AM FINDINGS: Lungs: There is mild bibasilar scarring. Liver: Normal. No mass. Gallbladder and bile ducts: There is moderate intrahepatic and extrahepatic biliary ductal dilatation. There is suggestion of a soft tissue density in the distal dilated common bile duct measuring 1.1 cm x 9 mm best seen on image 45 of series 5 and image 29 of series 1001. There is an abrupt transition point in this region. The patient is status post cholecystectomy. Pancreas: The pancreas is atrophic. There is no pancreatic ductal dilatation. Spleen: Normal. No splenomegaly. Adrenal glands: Normal. No mass. Kidneys and ureters: Normal. No hydronephrosis. Stomach and bowel: There is no bowel obstruction. There is a large amount of stool seen throughout the colon. There is diverticulosis without evidence of diverticulitis. Appendix: No evidence of appendicitis. Intraperitoneal space: Unremarkable. No free air. No significant fluid collection. Vasculature: There is heavy atherosclerotic disease. There is no abdominal aortic aneurysm. Lymph nodes: Unremarkable. No enlarged lymph nodes. Urinary bladder: Unremarkable as visualized. Reproductive: The patient appears to be status post hysterectomy. Bones/joints: Multiple old bilateral rib fractures are identified. There is osteopenia present. There is grade 1 anterolisthesis of L5 on S1. There is multilevel advanced degenerative disc disease. There is scoliosis noted. Soft tissues: Unremarkable. IMPRESSION: 1. Moderate intrahepatic and extrahepatic biliary ductal dilatation with an abrupt transition point in the distal common bile duct where there appears to be a soft tissue density identified which could represent a noncalcified stone or lesion. Comparison with CT from 01/09/2019 would be helpful if it becomes available. Also MRI/MRCP may be helpful for further characterization. 2. Large amount of stool seen throughout the colon. 3. Diverticulosis.
[2023-05-16 09:24] LABS: Microscopic, Urine URINE MICROSCOPIC (MICROSCOPIC)
[2023-05-16 09:25] LABS: Appearance,Urine SL CLOUDY (Clear); Bilirubin,Urine Negative (Negative); Blood, Urine Negative (Negative); Color,Urine YELLOW (Yellow); Glucose,Urine (UA) Negative (Negative); Ketones,Urine Negative (Negative); Leukocyte Esterase,Urine 1+ (Negative); Nitrate,Urine Negative (Negative); Protein,Urine Negative (Negative)
--- NOTE | 2023-05-16 09:25 | PC.NURSE ---
Pt ambulatory to bathroom x2 person assist. No other needs voiced at this time. Call light within reach.
[2023-05-16 09:43] LABS: Bacteria,Urine 4+ /lpf; Squamous Epithelial Cell,Urine Occasional #/hpf (0-5)
--- NOTE | 2023-05-16 11:43 | PC.NURSE ---
Dr. Solano at BS to update pt on results
--- NOTE | 2023-05-16 11:46 | PC.NURSE ---
Spoke with pt son, Ryan, advised he would be heading this way
--- NOTE | 2023-05-19 12:17 | PC.NURSE ---
urine culture shows gram - rods, called pt to given update and inform her that an antibiotic was being called into [facility] in [place] per pt request. Dr. Daniel ordered Macrobid 100mg bid for 5 days is called in to pharmacy.
== END 2023-05-16 12:32 | disposition home or self-care (01) ==
PROVIDERS: Student in an Organized Health Care Education/Training Program; Emergency Provider Emergency Medicine
DX: R10.13 Epigastric pain (principal); Z87.891 Personal history of nicotine dependence
CPT/HCPCS: 36415; 71045; 74018; 74177; 80053; 81001; 83690; 84484; 85025; 87086; 87636; 93005; 96374; 96375; 99285; J2405; Q9967

== ENCOUNTER → 2023-12-14 08:02 | Day surgery (SDC) | payer MEDICARE, MEDICAID, SELFPAY ==
[2023-12-14] MEDS: TETRACAINE 0.5% OPTH SOL 15ML OP (09:30)
[2023-12-14] MEDS: APRACLONIDINE 0.5% OPHTH SOLN 5ML OP (09:30)
[2023-12-14] MEDS: PHENYLEPHRINE 2.5% OPHTH SOLN 2ML OP (09:40)
[2023-12-14] MEDS: TROPICAMIDE 1% OPTH SOLN 2ML OP (09:40)
[2023-12-14 09:41] VITALS: BP 139/62; PULSE 68; RESP 18; TEMP 36.7; O2SAT 97
--- NOTE | 2023-12-14 12:00 | HMH.PROCNOTE ---
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 The patient has noticed that the vision has decreased from the previous good level postop. The patient reports that he/she is having trouble reading and/or driving or that glare is giving them a problem. On exam, the patient was found to have visually significant posterior capsular opacification. The treatment options, risks and benefits were explained and the patient elected to have YAG laser capsulotomy in an attempt to improve the vision. Of note, the best corrected visual acuity is in the 23/30 or worse range by refraction or glare testing. The eye was dilated and 1 drop of 0.5% Iopidine applied. YAG laser energy was applied to the posterior capsular bag with good formation of an opening and no complications were noted. The patient will be seen back for follow up in 2 weeks addndum: dry, roughened corneal epithelium made eficiency of laser poor even with a capsulotomy lens 622mj/102 pulses
--- NOTE | 2024-02-01 13:29 | HMH.PROCNOTE ---
[facility] Procedure Note Date: 02/01/24 Time: 13:29 Procedure Note:: Preoperative diagnosis: Posterior Opacification [left] eye Postoperative diagnosis: same Operation: YAG Laser Capsulotomy The patient has undergone uneventful cataract surgery in the past. The patient has noticed that the vision has decreased from the previous good level postop. The patient reports that he/she is having trouble reading and/or driving or that glare is giving them a problem. On exam, the patient was found to have visually significant posterior capsular opacification. The treatment options, risks and benefits were explained and the patient elected to have YAG laser capsulotomy in an attempt to improve the vision. Of note, the best corrected visual acuity is in the 23/30 or worse range by refraction or glare testing. The eye was dilated and 1 drop of 0.5% Iopidine applied. YAG laser energy was applied to the posterior capsular bag with good formation of an opening and no complications were noted. The patient will be seen back for follow up in 2 weeks
== END ==
LOC: OUTP 08:05
PROVIDERS: PCP Family Medicine; Visit Provider Ophthalmology
PROC: (CPT 66821; principal; 2023-12-14 09:00)
DX: H26.492 Other secondary cataract, left eye (principal)
CPT/HCPCS: 66821

== ENCOUNTER 2024-01-18 12:52 | Outpatient (CLI) | payer MEDICARE, MEDICAID, SELFPAY ==
--- NOTE | 2024-01-18 12:57 | CA_ITS ---
FINAL REPORT TECHNIQUE: Ultrasound images of the deep venous system were obtained from the left groin to the calf veins. CLINICAL HISTORY: REDNESS LT ANKLE AND DIST CALF X SEVERAL WKS,EDEMA,HAS A KNOT MEDIAL PROX THIGH THAT HAS BEEN THERE FOR SEVERAL YEARS FINDINGS: The deep venous system is normally compressible. Normal flow is identified. In the medial, proximal thigh, there is a 5.5 x 5.8 cm anechoic structure with through-transmission which appears to represent a cystic structure. The origin is unclear. IMPRESSION: No evidence of left lower extremity DVT. Apparent cystic structure in the medial proximal thigh, origin unclear. MRI may be beneficial. The cystic structure should be easily amenable to fluid aspiration. Reviewed, Interpreted and Dictated by Vipul Ceballos MD Transcribed by Yue Baer Authenticated and [facility]
== END 2024-01-18 23:59 | disposition home or self-care (01) ==
LOC: RT 12:53
PROVIDERS: PCP Family Medicine; Visit Provider Nurse Practitioner Family
DX: M79.605 Pain in left leg (principal)
CPT/HCPCS: 93971

== ENCOUNTER 2024-02-07 14:46 | Outpatient (CLI) | payer MEDICARE, MEDICAID, SELFPAY ==
--- NOTE | 2024-02-07 14:53 | XR_ITS ---
FINAL REPORT CLINICAL HISTORY: PAIN..lt hip COMPARISON: None FINDINGS: LEFT HIP: Two views of the left hip, including an AP view of the pelvis, demonstrate no acute fracture or dislocation. Joint space narrowing is consistent with mild osteoarthritis. The femoral head has a normal smooth contour. The visualized bony structures are well aligned. No soft tissue abnormality is seen. IMPRESSION: Mild osteoarthritis without acute bony abnormality. Reviewed, Interpreted and Dictated by Vipul Ceballos MD Transcribed by Jolly Epstein Authenticated and [facility]
== END 2024-02-07 23:59 | disposition home or self-care (01) ==
LOC: RAD 14:47
PROVIDERS: PCP Family Medicine; Visit Provider Family Medicine
DX: M25.552 Pain in left hip (principal)
CPT/HCPCS: 73502

== ENCOUNTER 2024-04-06 14:00 | Outpatient (RCR) | payer MEDICARE, MEDICAID, SELFPAY ==
--- NOTE | 2024-02-15 11:54 | HMH.PTOPWND ---
Rehab Outpt Wound Evaluation Rehab OP Wound Evaluation Start: 02/15/24 11:42 Freq: Status: Active Protocol: Document 02/15/24 11:42 TAYLER (Rec: 02/15/24 11:54 PHORJAMES [id number]) E-signed By Fabien Rutledge, PT Subjective/History History History This is the initial PT eval for Wendy Fitzpatrick, 88 yowf who presents with c/o B LE edema for many years, worse x ~ 1-2 mos and worse in the L LE. She reports insidious onset of worsening edema at this time. 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 She has significant PMH of HTN, hypothyroidism, Trigeminal neuralgia, L breast lumpectomy , cervical cancer with partial hysterectomy, CCY, APPY, coccyx removal, B reverse TSA, B TKA, L LE vein stripping procedure, B LE laser vein procedures. She reports US was negative for DVT on the L LE and she has extreme difficulty donning/doffing her compression stockings. Subjective Subjective She reports current pain is 3/ 10, at worst pain is 10/10. She presents with 2/4 TTP to B lower legs. 2+ pitting edema to B lower legs with L lower leg showing lipodermatosclerosis and moderate erythema. Multiple areas of varicosities noted. New diagnosis of cancer in past 12 No months? Lymphedema Eval Classification of Lymphedema Secondary Lymphedema Yes Stemmer's sign Stemmer's Sign no Stage of Lymphedema Lymphedema stages Stage II (Pitting edema, increased fibrosis w/ decreased pitting) Skin Changes Dry Skin Yes Taut, Shiny Skin Yes Hyperkeratosis Yes Redness Yes Discoloration of Skin Yes Other Changes Yes Pain Scale Pain Scale (0-10) 10 Affected Extremities Areas Affected by Lymphedema/Edema Right Lower Extremity,Left Lower Extremity Lower Extremity Measurements Right MTP Measurement (cm) 20.5 Heel Measurement (cm) 30.4 10 cm Proximal to Lateral Malleoli 26.2 Measurement (cm) 20 cm Proximal to Lateral Malleoli 34.0 Measurement (cm) 30 cm Proximal to Lateral Malleoli 35.6 Measurement (cm) 40 cm Proximal to Lateral Malleoli 45.8 Measurement (cm) 50 cm Proximal to Lateral Malleoli 0 Measurement (cm) 60 cm Proximal to Lateral Malleoli 0 Measurement (cm) Lower Extremity Measurement Total (cm) 192.5 Left MTP Measurement (cm) 20.9 Heel Measurement (cm) 28.8 10 cm Proximal to Lateral Malleoli 23.1 Measurement (cm) 20 cm Proximal to Lateral Malleoli 35.8 Measurement (cm) 30 cm Proximal to Lateral Malleoli 41.6 Measurement (cm) 40 cm Proximal to Lateral Malleoli 46.2 Measurement (cm) 50 cm Proximal to Lateral Malleoli 0 Measurement (cm) 60 cm Proximal to Lateral Malleoli 0 Measurement (cm) Lower Extremity Measurement Total (cm) 196.4 Manual Lymphatic Drainage Treatment Area MLD Treatment Area Right Lower Extremity,Left Lower Extremity Wound Problems/Impairments Impairments Problems/Impairmments Palpation Tenderness,Impaired Strength,Impaired Endurance, Impaired Gait Pattern,Impaired Walking,Impaired Standing, Impaired Sitting,Impaired Shower/Bathing,Impaired Household Care,Increased Edema ,Lymphedema Present,Subjective C/O Pain,Impaired Self Care/ Self Management Prognosis Rehab Potential Good Comment Skilled therapy is indicated to reduce overall edema burden and return pt to PLOF. 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 CVI Short Term Goals Number of Weeks 2 Decreased Palpation Tenderness Yes: 1/4 B lower legs Decrease Edema Yes: 1+ pitting edema B lower legs Decrease Subjective C/O Pain Yes: Pain at worst 8/10 B lower legs Patient to Understand Lymphedema Yes Treatment and Exercises Decrease Girth Measurments by (cm) Yes: B LE total by 5 cm Jail Goals Number of Weeks 4 Decreased Palpation Tenderness Yes: 0/4 B lower legs Decrease Edema Yes: no pitting edema B lower legs Decrease Lymphedema Yes: No fibrotic edema B lower legs Decrease Subjective C/O Pain Yes: 6/10 at worst B lower legs Patient to be Ind w/ HEP Yes Patient to be Ind w/ Donning/Mellen Yes Compression Garments Patient to Adhere Lymphedema Precautions Yes Decrease Girth Measurments by (cm) Yes: B lE total by 15 cm ea Outpatient Therapy Plan of Care Treatment Plan May Include Therapeutic Exercise Including Home Yes Exercise Program Manual Therapy Techniques Yes Neuromuscular Re-education Yes Therapeutic Activities to Return to Yes Previous Functional/Work Level ADL/Self Care Education Yes Orthotics/Bracing/Splinting Yes Vasopneumatic Compression Pump Yes Manual Lymphatic Drainage Yes Eval/Re-Eval Yes Frequency Times per week 1-2 Duration Number of Weeks 4 Addendums This patient is a candidate for social No or vocational rehab? Patient/Guardian verbally acknowledges Yes understanding of treatment program and consents to further treatment? Patient/Guardian verbally acknowledges Yes understanding of diagnosis, prognosis and goals for treatment? Eval Complexity PT Charges 97542 - High Complexity PHYSICIAN CERTIFICATION: I certify the specified therapy services for Wendy Fitzpatrick are required, authorized, and reviewed every 30 days.
--- NOTE | 2024-03-14 15:02 | HMH.RHREAS ---
Rehab Reassessment Rehab OP Re-assessment Start: 02/15/24 11:42 Freq: Status: Active Protocol: Document 03/14/24 14:57 [email or web address] (Rec: 03/14/24 15:02 PHORJAMES [id number]) E-signed By Fabien Rutledge PT Rehab Re-assessment Subjective Subjective Pt reports she has tenderness in her L thigh, but otherwise feels less sore. She also continues to c/o pain intermittently, but unclear if this is related to her edema, or due to her multiple other medical problems. She reports pain currently 0/10, at worst 7/10. Objective Objective Notes Edema: B lower legs with 1+ pitting edema. Skin: Minimal B lower leg erythema noted this date. TTP: 1/4 L medial thigh. Pain: 7/10 at worst in B LE. Assessment Progress Assessment Progressing as Expected Assessment Notes Pt has shown significant reduction in overall edema of B lower legs, but continues to have intermittent pain and tenderness. She continues to need skilled intervention to reduce overall edema burden and return to PLOF. Patient goals met ST LT/8 Plan Plan Continue per initial POC. Frequency of Therapy 1 x/wk Duration of therapy 4 wks Time and Billing Re-Eval Time 12 Re-Eval Billing Units 0 PHYSICIAN CERTIFICATION: I certify the specified therapy services for Wendy Fitzpatrick are required, authorized, and reviewed every 30 days.
== END 2024-04-06 23:59 | disposition home or self-care (01) ==
LOC: PT 14:00
PROVIDERS: Visit Provider Family Medicine
DX: I73.9 Peripheral vascular disease, unspecified (principal)
CPT/HCPCS: 97140; 97163

== ENCOUNTER 2024-05-25 13:17 | Emergency (ER) | payer MEDICARE, MEDICAID, SELFPAY ==
[2024-05-25 13:17] VITALS: BP 181/76; PULSE 75; RESP 20; TEMP 36.6; O2SAT 95; BMI 28.1
[2024-05-25 13:25] VITALS: BP 181/77; PULSE 75
--- NOTE | 2024-05-25 13:25 | PC.NURSE ---
C-COLLAR REMOVED BY DR AYALA
[2024-05-25 13:31] VITALS: BP 170/76; PULSE 78
--- NOTE | 2024-05-25 13:39 | CT_ITS ---
FINAL REPORT TECHNIQUE: Axial images through the pelvis were performed by computed tomography. This study was performed with techniques to keep radiation doses as low as reasonably achievable (ALARA). Individualized dose reduction techniques using automated exposure control or adjustment of mA and/or kV according to the patient's size were employed. CLINICAL HISTORY: Hip pain after a fall FINDINGS: CT PELVIS WITHOUT CONTRAST There is no acute fracture or dislocation. 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 At the hips, degenerative change is worse on the right. Soft tissues demonstrate distention of the urinary bladder. There is a large hyperdense mass in the soft tissues of the posterior left thigh which is incompletely imaged and measures at least 10 cm in axial dimension. Craniocaudal extension cannot be determined. Soft tissues are otherwise unremarkable. IMPRESSION: No acute fracture. Degenerative joint disease. Large, incompletely imaged hematoma in the posterior left thigh. Reviewed, Interpreted and Dictated by Suyapa Gaston MD Transcribed by Yue Baer Authenticated and [facility]
--- NOTE | 2024-05-25 13:40 | XR_ITS ---
FINAL REPORT CLINICAL HISTORY: Status post fall FINDINGS: A portable view of the chest is obtained. Cardiac and mediastinal silhouettes are normal. Bilateral interstitial opacities could be chronic. Pulmonary edema is not excluded. There is no pleural effusion or pneumothorax. There are postoperative changes from bilateral shoulder arthroplasty. There are several age-indeterminate right rib fractures. IMPRESSION: Bilateral interstitial opacities could be chronic but pulmonary edema is not excluded. Several, age-indeterminate right rib fractures. Reviewed, Interpreted and Dictated by Suyapa Gaston MD Transcribed by Yue Baer Authenticated and [facility]
--- NOTE | 2024-05-25 13:45 | HMH.EDGENADL ---
Discharge Plan Disposition Patient Disposition: Home, Self-Care Chief Complaint: Extremity Injury, Lower Prescriptions Prescriptions: No Action duloxetine [Cymbalta] 30 mg capsule,delayed release(DR/EC) 30 mg PO DAILY hydrocodone-acetaminophen [Selma] 5-325 mg tablet 1 tab PO QHS PRN (Reason: pain) morphine [MS Contin] 30 mg tablet extended release 30 mg PO Q12H omeprazole 20 mg capsule,delayed release(DR/EC) 20 mg PO DAILY furosemide [Lasix] 20 mg tablet 20 mg PO DAILY levothyroxine [Synthroid] 88 mcg tablet 88 mcg PO DAILY polyethylene glycol 3350 17 gram/dose powder 8.5 g PO DAILY PRN (Reason: bowels) simvastatin 40 mg tablet 40 mg PO QHS Referrals Follow up/Referrals: Daphne Ignacio MD [Primary Care Provider] - See instructions Activity Restrictions/Add. Instructions Additional Instructions/Restrictions: Call your family doctor to establish care for this visit to the emergency department and schedule follow-up within 48 hours to ensure improvement. If you have any worsening of your condition or any other concerning signs or symptoms, return to the emergency department or your primary care doctor for further evaluation. Clinical Impressions Clinical Impression: Injury of hip, left, Hematoma of left thigh Print Language Print Language: Lao Discharge ED Provider: Yvan Braden General Adult HPI <Jostin Solano MD - Last Filed: 05/25/24 15:13> General Chief complaint: Extremity Injury, Lower Stated complaint: LEFT HIP PAIN Time Seen by Provider: 05/25/24 13:17 History of Present Illness HPI narrative: 88-year-old female presenting today with left hip pain after a fall. States she normally walks with a walker is chronically on opiate medications and today she was walking without her walker and stepped outside and fell injuring her left hip which she states has been severe. Difficulty moving it since that time and had feels a bulge in the left hip. She denies any injuries to her head neck chest abdomen or extremities outside of the left hip injury. From a medication evaluation standpoint she takes extended release morphine and Selma. Related Data Home Medications ?Medication ?Instructions ?Recorded ?Confirmed duloxetine 30 mg capsule,delayed 30 mg PO DAILY Depression 02/08/19 12/14/23 release (Cymbalta) furosemide 20 mg tablet (Lasix) 20 mg PO DAILY Edema 02/08/19 12/14/23 hydrocodone 5 mg-acetaminophen 325 1 tab PO QHS PRN pain 02/08/19 12/14/23 mg tablet (Selma) levothyroxine 88 mcg tablet 88 mcg PO DAILY thyroid 02/08/19 12/14/23 (Synthroid) morphine 30 mg tablet,extended 30 mg PO Q12H Pain 02/08/19 12/14/23 release (MS Contin) omeprazole 20 mg capsule,delayed 20 mg PO DAILY GERD 02/08/19 12/14/23 release polyethylene glycol 3350 17 8.5 g PO DAILY PRN bowels 02/08/19 12/14/23 gram/dose oral powder simvastatin 40 mg tablet 40 mg PO QHS cholestrol 02/08/19 12/14/23 Allergies Allergy/AdvReac Type Severity Reaction Status Date / Time ibuprofen Allergy Mild Verified 04/19/19 10:54 Sulfa (Sulfonamide Allergy Mild Verified 04/19/19 10:54 Antibiotics) meperidine Allergy Unknown Verified 04/19/19 10:54 piroxicam Allergy Unknown Verified 04/19/19 10:54 [facility] <Jostin Solano MD - Last Filed: 05/25/24 15:13> [facility] Disclaimer: The information contained in this section may have been updated after the patient was seen, as this information can be updated by other users. Medical History (Updated 05/25/24 @ 15:12 by Jostin Solano MD) Family history of cholecystectomy Back pain GERD (gastroesophageal reflux disease) HLD (hyperlipidemia) Surgical History (Updated 12/14/23 @ 09:36 by Ryan Justice RN) History of hysterectomy History of laparoscopic cholecystectomy History of appendectomy History of knee surgery History of shoulder surgery Family History (Updated 12/14/23 @ 09:37 by Ryan Justice RN) Other No significant family history Social History (Updated 12/14/23 @ 09:38 by Ryan Justice RN) Smoking Status: Never smoker alcohol intake: never substance use type: denies use current occupational status: unemployed and disabled Travel in the last 8 weeks: None household members: other housing: house caffeine: Yes Have you lived/traveled outside US in past 30 days?: No Contact w/someone who lives/traveled outside US past 30 days?: No Exposure to someone with infectious disease in past 14 days?: No Do you have a fever (greater than 100.4 F or 38 C)?: No Have you tested positive for COVID-19: No Exposed to someone with COVID-19 in past 14 days?: No Do you have a sore throat?: No Do you have a cough?: No Do you have any weakness?: No Do you have any diarrhea?: No Are you experiencing any unusual bleeding?: No Do you have any muscle aches/pain?: No Do you have any abdominal pain?: No Are you experiencing loss of taste or smell?: No Other Medical History Have you received the Flu Vaccine for this season: Yes Have you received the Pneumonia Vaccine: No <Jostin Solano MD - Last Filed: 05/25/24 15:13> ROS Obtained: Yes All systems reviewed & no additional complaints except as documented Physical Exam <Jostin Solano MD - Last Filed: 05/25/24 15:13> General General appearance: alert and in no apparent distress Head Head exam: atraumatic and normocephalic Eye Eye exam: Present other (Pinpoint pupils) Chest Chest inspection: Absent tenderness Respiratory Respiratory exam: Present normal lung sounds bilaterally; Absent respiratory distress Cardiovascular Cardiovascular exam: Present regular rate and normal rhythm Abdominal Exam Abdominal exam: Present soft; Absent distention or tenderness Extremities Exam Extremities exam: Present other (Patient has fullness in the left hip and difficulty with any type of internal and external rotation and very tender to touch neurovascular intact) Neurological Exam Neurological exam: Present alert and oriented X3 Medical Decision Making <Jostin Solano MD - Last Filed: 05/25/24 15:13> Medical Records Screening: Per USPSTF and CDC recommendations, given the prevalence of disease in our region, it is our hospital?s policy to screen for HIV and viral Hepatitis for all patients aged 18 and over and those with ongoing risk factors. Trey Inquiry Pt receiving controlled substance: No Vital Signs: 05/25/24 13:17 05/25/24 13:25 05/25/24 13:31 Temperature 97.9 F Temperature Source Oral Pulse Rate 75 78 Pulse Rate [Right] 75 Respiratory Rate 20 Blood Pressure 181/77 H 170/76 H Blood Pressure [Right Arm] 181/76 H Blood Pressure Mean 93 97 Blood Pressure Mean [Right Arm] 111 02 Sat by Pulse Oximetry 95 Oxygen Delivery Method Room Air 05/25/24 15:57 05/25/24 16:01 Temperature Temperature Source Pulse Rate 71 81 Pulse Rate [Right] Respiratory Rate Blood Pressure 195/92 H 196/125 H Blood Pressure [Right Arm] Blood Pressure Mean Blood Pressure Mean [Right Arm] 02 Sat by Pulse Oximetry 94 L 94 L Oxygen Delivery Method Room Air Room Air Lab Data Lab results reviewed: Yes I reviewed the patient's lab results. Lab Results 05/25/24 13:40: WBC 7.0, RBC 3.96 L, Hgb 11.7 L, Hct 36.7 L, MCV 92.7, MCH 29.5, MCHC 31.9, RDW 14.6, Plt Count 115 L, MPV 14.1 H, Neut % (Auto) 62.4, Lymph % (Auto) 22.3, Throckmorton % (Auto) 8.6, Eos % (Auto) 4.7, Baso % (Auto) 1.6, Neut # (Auto) 4.3, Lymph # (Auto) 1.6, Throckmorton # (Auto) 0.6, Eos # (Auto) 0.3, Baso # (Auto) 0.1, PT 11.4, INR 1.02, APTT 29.9, Sodium 135 L, Potassium 4.0, Chloride 99, Carbon Dioxide 26, Anion Gap 14.0, BUN 19 H, Creatinine 1.00, Estimated GFR 53 L, Est GFR ( Amer) 64, Glucose 114 H, Calcium 8.9, Total Bilirubin 0.8, AST 35, ALT 15, Alkaline Phosphatase 101, Total Protein 6.7, Albumin 3.9, Globulin 2.8, Albumin/Globulin Ratio 1.4, HIV Ag/Ab Combo Qual Negative 05/25/24 13:40 05/25/24 13:40 Orders (Tests/Meds): ORDERS Category Date Time Status CT bony pelvis Stat Cat Scan 05/25/24 13:39 Completed CXR --portable [XR chest portable] Stat Exams 05/25/24 13:40 Completed CBC w/Auto Diff [Complete Blood Count Auto Diff] Stat Lab 05/25/24 13:40 Completed CMP [Comprehensive Metabolic Panel] Stat Lab 05/25/24 13:40 Completed HIV Combo Stat Lab 05/25/24 13:40 Completed Hep C Ab with Reflex to RNA Stat Lab 05/25/24 13:53 Ordered PT/PTT Stat Lab 05/25/24 13:40 Completed Medical Decision Narrative: 88-year-old above history and physical with clinical signs and symptoms concerning for a left hip dislocation versus fracture. She does not appear to have injuries elsewhere. She does have pinpoint pupils and is prescribed extended release morphine and Selma at home will not escalate her opiates at the moment but I imagine she will be very difficult to control from pain standpoint given her chronic usage. Plain films and CT scans pending in addition to anticipated laboratory evaluation and for preoperative assessment. Reassessment 3:[address] scan was performed which I personally interpreted which shows no fractures or dislocation however she does have a large posterior thigh hematoma which is evident clinically. She does have thrombocytopenia chronically but she is not on any anticoagulants. She has been placed in a pressure dressing we will put her in ED observation and reassess in 2 hours to make sure that this is not enlarged. No CT angio indicated at the moment. But if this worsens may consider getting angiography. Care will be transitioned to Dr. Yvan Braden. She will also need to be able to demonstrate that she is able to ambulate. <Yvan Braden MD - Last Filed: 05/25/24 16:30> Vital Signs: 05/25/24 13:17 05/25/24 13:25 05/25/24 13:31 Temperature 97.9 F Temperature Source Oral Pulse Rate 75 78 Pulse Rate [Right] 75 Respiratory Rate 20 Blood Pressure 181/77 H 170/76 H Blood Pressure [Right Arm] 181/76 H Blood Pressure Mean 93 97 Blood Pressure Mean [Right Arm] 111 02 Sat by Pulse Oximetry 95 Oxygen Delivery Method Room Air 05/25/24 15:57 05/25/24 16:01 Temperature Temperature Source Pulse Rate 71 81 Pulse Rate [Right] Respiratory Rate Blood Pressure 195/92 H 196/125 H Blood Pressure [Right Arm] Blood Pressure Mean Blood Pressure Mean [Right Arm] 02 Sat by Pulse Oximetry 94 L 94 L Oxygen Delivery Method Room Air Room Air Lab Data Lab Results 05/25/24 13:40: WBC 7.0, RBC 3.96 L, Hgb 11.7 L, Hct 36.7 L, MCV 92.7, MCH 29.5, MCHC 31.9, RDW 14.6, Plt Count 115 L, MPV 14.1 H, Neut % (Auto) 62.4, Lymph % (Auto) 22.3, Throckmorton % (Auto) 8.6, Eos % (Auto) 4.7, Baso % (Auto) 1.6, Neut # (Auto) 4.3, Lymph # (Auto) 1.6, Throckmorton # (Auto) 0.6, Eos # (Auto) 0.3, Baso # (Auto) 0.1, PT 11.4, INR 1.02, APTT 29.9, Sodium 135 L, Potassium 4.0, Chloride 99, Carbon Dioxide 26, Anion Gap 14.0, BUN 19 H, Creatinine 1.00, Estimated GFR 53 L, Est GFR ( Amer) 64, Glucose 114 H, Calcium 8.9, Total Bilirubin 0.8, AST 35, ALT 15, Alkaline Phosphatase 101, Total Protein 6.7, Albumin 3.9, Globulin 2.8, Albumin/Globulin Ratio 1.4, HIV Ag/Ab Combo Qual Negative Orders (Tests/Meds): ORDERS Category Date Time Status CT bony pelvis Stat Cat Scan 05/25/24 13:39 Completed CXR --portable [XR chest portable] Stat Exams 05/25/24 13:40 Completed CBC w/Auto Diff [Complete Blood Count Auto Diff] Stat Lab 05/25/24 13:40 Completed CMP [Comprehensive Metabolic Panel] Stat Lab 05/25/24 13:40 Completed HIV Combo Stat Lab 05/25/24 13:40 Completed Hep C Ab with Reflex to RNA Stat Lab 05/25/24 13:53 Ordered PT/PTT Stat Lab 05/25/24 13:40 Completed Medical Decision Narrative: 88-year-old above history and physical with clinical signs and symptoms concerning for a left hip dislocation versus fracture. She does not appear to have injuries elsewhere. She does have pinpoint pupils and is prescribed extended release morphine and Selma at home will not escalate her opiates at the moment but I imagine she will be very difficult to control from pain standpoint given her chronic usage. Plain films and CT scans pending in addition to anticipated laboratory evaluation and for preoperative assessment. Reassessment 3:[address] scan was performed which I personally interpreted which shows no fractures or dislocation however she does have a large posterior thigh hematoma which is evident clinically. She does have thrombocytopenia chronically but she is not on any anticoagulants. She has been placed in a pressure dressing we will put her in ED observation and reassess in 2 hours to make sure that this is not enlarged. No CT angio indicated at the moment. But if this worsens may consider getting angiography. Care will be transitioned to Dr. Yvan Braden. She will also need to be able to demonstrate that she is able to ambulate. Sampson: I assumed primary responsibility for this patient after signout from previous physician. On my evaluation, patient in mild pain, but able to stand up and ambulate with some assistance. Hematoma large, but compartments are soft. Appropriate for discharge with outpatient follow-up. Return precautions discussed. Because patient at baseline without signs or symptoms of clinical decompensation, deemed appropriate for discharge. Results were relayed to patient who voiced understanding and were agreeable to outpatient management and follow up. I discussed my clinical impression with patient and answered all questions. At this time, the evidence for any other entities in the differential is insufficient to warrant any further testing or ED observation. This was explained as well. Advisory was given that persistent or worsening symptoms require further evaluation. I confirmed the understanding of this discussion. Critical Care <Jostin Solano MD - Last Filed: 05/25/24 15:13> Critical Care Time Critical Care Time: No
--- NOTE | 2024-05-25 13:49 | PC.NURSE ---
HOME MEDS GIVEN TO PT'S FAMILY
[2024-05-25 13:50] LABS: Chloride 99 mmol/L (98-107)
[2024-05-25 13:51] LABS: Albumin Level 3.9 g/dl (3.5-5.0); Basophils # 0.1 K/mm3 (0-0.2); Basophils % 1.6 % (0.1-2.0); Eosinophils # 0.3 K/mm3 (0.0-0.4); Eosinophils % 4.7 % (0.1-12.0); Hematocrit 36.7 % (37.0-47.0); Hemoglobin 11.7 g/dL (12.2-16.2); Lymphocytes # 1.6 K/mm3 (0.7-4.5); Lymphocytes % 22.3 % (10-50); Mean Corpuscular HGB Conc 31.9 g/dL (31.8-35.4); Mean Corpuscular Hemoglobin 29.5 pg (27.0-31.2); Mean Corpuscular Volume 92.7 fl (81-99); Mean Platelet Volume 14.1 fl (7.4-10.4); Monocytes # 0.6 K/mm3 (0.1-1.0); Monocytes % 8.6 % (1.7-9.3); Neutrophils # 4.3 K/mm3 (1.8-7.8); Neutrophils % 62.4 % (37.0-80.0); Platelet Count 115 K/mm3 (142-424); Red Blood Count 3.96 M/mm3 (4.20-5.40); Red Cell Distribution Width 14.6 % (11.5-17.5); Sodium 135 mmol/L (136-145)
[2024-05-25 13:53] LABS: Blood Urea Nitrogen 19 mg/dl (7-17); Estimated Glomerular Filt Rate 53 ml/min (>60); GFR (African American) 64 ML/MIN (>60)
[2024-05-25 13:54] LABS: Alanine Aminotransferase 15 U/L (12-78); Albumin/Globulin Ratio 1.4 (1.1-1.8); Alkaline Phosphatase 101 U/L (38-126); Aspartate Amino Transferase 35 U/L (14-36); Bilirubin,Total 0.8 mg/dl (0.2-1.3); Calcium 8.9 mg/dl (8.4-10.2); Carbon Dioxide 26 mmol/L (22.0-30.0); Globulin 2.8 g/dL (1.3-3.2); Glucose 114 mg/dl (74-100); Total Protein,Serum 6.7 g/dl (6.3-8.2)
[2024-05-25 13:57] LABS: Activated Partial Thrombo Time 29.9 seconds (22.8-30.6); INR 1.02 (0.9-1.1); Prothrombin Time 11.4 seconds (10.1-12.5)
--- NOTE | 2024-05-25 13:59 | ECG_ITS ---
APPROVED REPORT Exam: Resting ECG HR:73 bpm ECG Measurements Heart Rate 73 AXES VT 191 P 67 QRSd 102 QRS 25 QT 389 T 49 QTc 415 Conclusion SINUS RHYTHM WITH OCCASIONAL VENTRICULAR PREMATURE COMPLEXES SEPTAL MYOCARDIAL INFARCTION , OF INDETERMINATE AGE [40+ ms Q WAVE IN V1/V2] ABNORMAL ECG UNCONFIRMED REPORT Electronically signed by : Dion Solano, 05/25/2024 15:33:57
--- NOTE | 2024-05-25 14:16 | HMH.ITSTN ---
per Dr Solano no hip xrays needed at this time.
[2024-05-25 15:05] LABS: HIV Combo NEGATIVE (Negative)
--- NOTE | 2024-05-25 15:31 | PC.NURSE ---
SON UPDATED AT THIS TIME,
[2024-05-25 15:57] VITALS: BP 195/92; PULSE 71; O2SAT 94
[2024-05-25 16:01] VITALS: BP 196/125; PULSE 81; O2SAT 94
[2024-05-25 17:56] VITALS: BP 135/59; PULSE 81; RESP 18; TEMP 36.6; O2SAT 96
== END 2024-05-25 18:02 | disposition home or self-care (01) ==
PROVIDERS: Student in an Organized Health Care Education/Training Program; Emergency Provider Emergency Medicine; PCP Family Medicine
DX: S70.12XA Contusion of left thigh, initial encounter (principal); S79.912A Unspecified injury of left hip, initial encounter; M25.552 Pain in left hip; W18.30XA Fall on same level, unspecified, initial encounter; Y93.89 Activity, other specified; Y92.9 Unspecified place or not applicable
CPT/HCPCS: 71045; 72192; 80053; 85025; 85610; 85730; 87389; 93005; 99284

== ENCOUNTER 2024-09-18 14:47 | Outpatient (CLI) | payer MEDICARE, MEDICAID, SELFPAY ==
--- NOTE | 2024-09-18 15:02 | ECG_ITS ---
APPROVED REPORT Exam: Resting ECG HR:93 bpm ECG Measurements Heart Rate 93 AXES QRSd 107 QRS 60 QT 354 T 35 QTc 405 Conclusion ATRIAL FIBRILLATION LOW QRS VOLTAGE IN PRECORDIAL LEADS [QRS DEFLECTION < 1.0 mV IN CHEST LEADS] ANTEROSEPTAL MYOCARDIAL INFARCTION , PROBABLY OLD [40+ ms Q WAVE IN V1-V4] ABNORMAL ECG UNCONFIRMED REPORT Electronically signed by : David Bower MD 09/18/2024 16:19:04
== END 2024-09-18 23:59 | disposition home or self-care (01) ==
PROVIDERS: PCP Family Medicine; Visit Provider Family Medicine
DX: I49.9 Cardiac arrhythmia, unspecified (principal)
CPT/HCPCS: 93005

== ENCOUNTER 2024-09-25 15:59 | Outpatient (CLI) | payer MEDICARE, MEDICAID, SELFPAY | END 2024-09-25 23:59 | disposition home or self-care (01) | LOC: RT 16:00 | PROVIDERS: PCP Family Medicine; Visit Provider Physician Assistant | DX: I48.91 Unspecified atrial fibrillation (principal); R94.31 Abnormal electrocardiogram [ECG] [EKG]; R60.0 Localized edema | CPT/HCPCS: 93270 ==

== ENCOUNTER 2024-10-03 11:47 | Outpatient (CLI) | payer MEDICARE, MEDICAID, SELFPAY ==
--- NOTE | 2024-10-03 | CA_ITS ---
APPROVED REPORT Exam: Pharmacologic Technologist: Lorna Lu Ht: 5 ft 0 in Wt: 120 lbs BSA: 1.50 m2 HR: 88 bpm BP: 147/106 mmHg Stress Test Details Test: Lexiscan HR Resting HR: 88 bpm Max Heart Rate (APMHR): 133 bpm Max HR Achieved: 105 bpm Target HR (85% APMHR): 113 bpm % of APMHR: 79 Recovery HR: 100 bpm BP Resting BP: 147.0/106.0 mmHg Max BP: 147.0/106.0 mmHg Recovery BP: 126.0/66.0 mmHg ECG Resting ECG: Atrial fibrillation Stress ECG Conclusion Symptoms: Dyspnea, chest pain, dizziness Arrhythmias/Ectopy: Multifocal PVC ST-T Changes: Less than [address] depression. Conclusion: EKG unremarkable due to Lexiscan infuison. Electronically signed by : Yaneth Bergeron MD 10/04/2024 23:56:37
--- NOTE | 2024-10-03 12:30 | NM_ITS ---
APPROVED REPORT Exam: Nuclear Stress Test Indication: Chest pain, SOB, Edema Patient Location: Outpatient Stress Tech: Lorna Lu DE Tech:Fartun Robbins, [place]AT, RT (R)(N) Ht: 4 ft 11 in Wt: 120 lbs Bra Size: D HR: 82 bpm BP: 147/106 mmHg BSA: 1.48 m2 TID: 1.04 BMI: 24.2 History: Chest pain, SOB, Edema Procedure: Patient received 0.4 mg of intravenous Lexiscan, resting heart rate 82 bpm, resting blood pressure 147/106 mmHg, with Lexiscan maximum heart rate achieved was 111 bpm which is % of the maximum predicted heart rate and blood pressure was 136/55 mmHg. With Lexiscan, patient denied any complaint of chest pain. Cardiac Stress and Resting SPECT Images: Cardiac Stress and Resting SPECT images were obtained using technetium 99m Myoview 32.6 mCi stress and 10.38 mCi at rest. The patient is unable to lie on her abdomen. Therefore, prone stress imaging could not be performed. This may affect diagnostic interpretation of the study findings. Resting and stress imaging in supine positions demonstrate a large sized, severe, predominantly fixed perfusion defect in the inferior, apical, and mid to distal anterior LV agarwal. There is a small region of reversibility towards the anterior LV wall. Gated imaging demonstrates moderate to severe reduction in global LV systolic function. There is severe hypokinesis of the inferior LV wall. LVEF is calculated at 30%. Conclusion: Large sized, severe, predominantly fixed perfusion defect in the inferior, apical, and mid to distal anterior LV agarwal. There is a small region of reversibility towards the anterior LV wall. Findings are suggestive of partial reversible ischemia. Gated imaging demonstrates moderate to severe reduction in global LV systolic function. There is severe hypokinesis of the inferior LV wall. LVEF is calculated at 30%. Electronically signed by : Yaneth Bergeron MD 10/04/2024 13:10:48
[2024-10-03] MEDS: REGADENOSON 0.4MG/5ML SYRINGE 0.4 MG IV (13:56)
[2024-10-03] MEDS: SODIUM CHLORIDE 0.9% 10ML SYR (RAD ONLY) 10 ML IV ×2 (13:56→13:57)
[2024-10-03] MEDS: ISOTOPE MYOVIEW (PER STUDY) 1 DOSE IV (13:57)
== END 2024-10-03 23:59 | disposition home or self-care (01) ==
LOC: RAD 11:48
PROVIDERS: PCP Family Medicine; Visit Provider Physician Assistant
DX: R94.31 Abnormal electrocardiogram [ECG] [EKG] (principal); I48.0 Paroxysmal atrial fibrillation; R60.0 Localized edema
CPT/HCPCS: 78452; 93017; 93018; A9502; J2785

== ENCOUNTER 2024-10-12 09:36 | Outpatient (CLI) | payer MEDICARE, MEDICAID, SELFPAY ==
--- NOTE | 2024-10-12 | CA_ITS ---
APPROVED REPORT EXAM: Comprehensive 2D, Doppler, and color-flow Echocardiogram [employer] Technical Architect: Debra Saunders RT(R) Ht: 5 ft 0 in Wt: 150lbs BSA: 1.65 BP: 136/85 mmHg Indications: LVF, AFIB, dyspnea, HLD, edema 2D Dimensions LVEF (Bonilla's) 41.80 % F: 54 - 74 LV Volume 67.50 mL F: 46 - 106 LV Volume Index 40.9 mL/m2 F: 29 - 61 LA Volume 72.60 mL LA Volume Index 44.00 mL/m2 (M/F) 16-34 EF AP4 39.90 % EF AP2 43.5 % EF BP 41.8 % GL Strain -8.7 % M-Mode Dimensions RVDd 4.35 cm (0.9-2.6) LA Diam 3.95 cm (1.9-4.0) LVDd 3.33 cm (3.5-5.7) LVDs 2.50 cm (3.5-5.7) IVSd 1.21 cm (0.6-1.1) PWd 0.98 cm (0.6-1.1) EF (Teich) 50.60% FS 24.90% EDV (Teich) 45.10 mL ESV (Teich) 22.30 mL Tricuspid Valve TR P. Velocity 300.00 cm/s RAP Estimate 10.00 mmHg RVSP 46.00 mmHg Left Ventricle The left ventricle is normal size. The left ventricular systolic function is moderately reduced. There is increased LV wall thickness. There is moderate global hypokinesis present. Regional wall motion is difficult to evaluate in the setting of technically difficult study. Diastolic function is indeterminate. LVEF is 30-35%. Right Ventricle Right ventricle is mildly dilated. The right ventricular systolic function is normal. Atria Left atrium is severely dilated. Right atrium is severely dilated. There is no Doppler evidence of interatrial shunt. Aortic Valve The aortic valve is mildly thickened. Trace aortic regurgitation. There is no aortic valvular stenosis. Mitral Valve The mitral valve is normal in structure. No evidence of mitral valve stenosis. Mild mitral regurgitation. Tricuspid Valve Tricuspid valve is grossly normal in structure and function. Moderate tricuspid regurgitation. RVSP 30-35 mmHg. Pulmonic Valve The pulmonary valve is normal in structure. Trace pulmonic regurgitation. Great Vessels The aortic root is normal in size. IVC is normal in size and collapses >50% with inspiration. Pericardium There is no pericardial effusion. Other Information Study Quality: Fair Conclusion Technically difficult study due to poor acoustic windows. Moderately reduced LV systolic function (LVEF 30-35%). Mild RV dilation with normal RV function. Biatrial dilation. Moderate TR. Mild MR. Electronically signed by : Yaneth Bergeron MD 10/21/2024 20:55:28
== END 2024-10-12 23:59 | disposition home or self-care (01) ==
LOC: RT 09:36
PROVIDERS: PCP Family Medicine; Visit Provider Physician Assistant
DX: I08.1 Rheumatic disorders of both mitral and tricuspid valves (principal); I48.0 Paroxysmal atrial fibrillation; E78.5 Hyperlipidemia, unspecified; R94.31 Abnormal electrocardiogram [ECG] [EKG]
CPT/HCPCS: 93306

== ENCOUNTER 2024-11-16 08:33 | Day surgery (SDC) | payer MEDICARE, MEDICAID, SELFPAY ==
[2024-11-16] VITALS (15 sets, daily range): BP systolic 116–144; BP diastolic 64–86; PULSE 66–111; RESP 18–20; TEMP 36.9; O2SAT 87–100; BMI 30.4
--- NOTE | 2024-11-16 07:08 | IR_ITS ---
APPROVED REPORT Patient Location: Outpatient PROCEDURES Left heart catheterization Left ventriculogram Selective coronary angiogram INDICATION Systolic congestive heart failure ejection fraction 30%, Abnormal echocardiogram Informed consent was obtained prior to the procedure. COMPLICATIONS none Estimated Blood Loss: less than 10ml TECHNIQUE One percent lidocaine used to anesthetize the right anterior aspect of the wrist. The right radial artery was accessed via the Seldinger technique. A 6 Surinamese sheath was placed in the right radial artery. 2.5 mg of Verapamil, 800 mcg of nitroglycerin, 1mg Lidocaine and 5000 U Heparin were given through the arterial sheath. The JL3 catheter was also used to perform left heart catheterization, left ventriculogram and selective coronary angiogram. At the end of the procedure the sheath was removed good hemostasis was achieved using Traclet band, patient was transferred to the postop holding area in stable condition. ANGIOGRAPHIC RESULTS The left main artery Has an ostial 20% stenosis The left anterior descending artery Mild 10% luminal regularities The circumflex artery Mild 10% luminal regularities The right coronary artery Massively large dominant widely patent with 10% luminal regularities The SHEPARD ventriculogram reveals Dilated ventricle global hypokinesis estimate ejection fraction 30% The left ventricular end-diastolic pressure 10 to 15 mmHg IMPRESSION Nonflow limiting coronary artery disease Reduced ejection fraction with normal LVEDP PLAN 1. Medical management 2. Consider AICD Electronically signed by : Burke Baez MD 11/16/2024 11:04:08
[2024-11-16 09:22] LABS: Basophils # 0.1 K/mm3 (0-0.2); Basophils % 1.5 % (0.1-2.0); Eosinophils # 0.3 Kmm3 (0.0-0.4); Eosinophils % 5.6 % (0.1-12.0); Hematocrit 38.1 % (37.0-47.0); Hemoglobin 12.3 g/dL (12.2-16.2); Immature Granulocytes # 0.02 10^3uL; Immature Granulocytes % 0.3 %; Lymphocytes # 1.9 K/mm3 (0.7-4.5); Lymphocytes % 32.6 % (10-50); Mean Corpuscular HGB Conc 32.3 g/dL (31.8-35.4); Mean Corpuscular Hemoglobin 29.5 pg (27.0-31.2); Mean Corpuscular Volume 91.4 fl (81-99); Mean Platelet Volume 12.7 fl (7.4-10.4); Monocytes # 0.5 K/mm3 (0.1-1.0); Monocytes % 8.4 % (1.7-9.3); Neutrophils # 3.1 K/mm3 (1.8-7.8); Neutrophils % 51.6 % (37.0-80.0); Nucleated Red Blood Cells # 0 10^3/uL; Nucleated Red Blood Cells % 0 %; Platelet Count 123 K/mm3 (142-424); Red Blood Count 4.17 M/mm3 (4.20-5.40); Red Cell Distribution Width 15.7 % (11.5-17.5); Red Cell Distribution Width-SD 52.6 fL; White Blood Count 5.9 K/mm3 (4.8-10.8)
[2024-11-16 09:30] LABS: Chloride 96 mmol/L (98-107); Potassium 3.5 mmoL/L (3.5-5.1); Sodium 139 mmol/L (136-145)
[2024-11-16 09:33] LABS: Blood Urea Nitrogen 23 mg/dl (7-17); Creatinine Clearance Estimated 44 mL/min (50-200); Estimated Glomerular Filt Rate 52 ml/min (>60); GFR (African American) 63 ML/MIN (>60)
[2024-11-16 09:34] LABS: Anion Gap 13.5 mEq/L (5-15); Calcium 8.5 mg/dl (8.4-10.2); Carbon Dioxide 33 mmol/L (22.0-30.0); Glucose 94 mg/dl (74-100)
[2024-11-16] MEDS: HYDROCODONE/APAP 5/325 MG TABLET 1 TAB PO (09:55)
--- NOTE | 2024-11-16 09:58 | SUR.PREOP ---
Pt c/o left groin pain that she states is chronic, pt states she did not have her pain meds this morning, verbal order from dr alford to give her, her normal dose of pain medication.
--- NOTE | 2024-11-16 10:20 | SUR.PREOP ---
Pt continues to scream out that she is in pain. Asked pt if this is a new pain and she states know its been going on for years, she stated her pain meds dont work without morphine, no new orders for pain meds per MD d/t pt being sedated for procedure soon. Gave additional warm blankets and repositioned pt. Notified pt that she is about to be taken back for her procedure.
[2024-11-16] MEDS: HEPARIN 1,000 UNITS/ML 10ML VIAL (CATH LAB) 5000 UNIT IV (10:42)
[2024-11-16] MEDS: LIDOCAINE 1% 10ML MDV 10 ML IJ (10:42)
[2024-11-16] MEDS: HEPARIN 1,000 UNITS/500ML NS (CATH LAB) 3000 UNIT IV (10:42)
[2024-11-16] MEDS: diphenhydrAMINE 50MG/ML VIAL 50 MG IV (10:43)
[2024-11-16] MEDS: MIDAZOLAM HCL 1MG/ML 5ML VIAL 1 MG IV (10:43)
[2024-11-16] MEDS: FENTANYL 100MCG/2ML VIAL 50 MCG IV (10:43)
[2024-11-16] MEDS: VERAPAMIL 2.5MG/ML 2ML VIAL 2.5 MG IV (10:43)
[2024-11-16] MEDS: 0.9 % SODIUM CHLORIDE 500 ML 25 ML IV (10:43)
[2024-11-16] MEDS: NITROGLYCERIN 800MCG/8ML SYR (CATH LAB) 800 MCG IA (10:43)
[2024-11-16] MEDS: IOPAMIDOL-370 (76%);100ML BOTTLE 70 ML IV (11:21)
--- NOTE | 2024-11-16 11:50 | SUR.PHASEII ---
Family not in waiting room when assisted dr alford to speak with them about pt results
--- NOTE | 2024-11-16 12:13 | SUR.PHASEII ---
Family called for update on pt and results of cath, notified them the dr will be out to speak with them shortly and to remain in the waiting room
== END 2024-11-16 14:49 | disposition home or self-care (01) ==
PROVIDERS: PCP Family Medicine; Visit Provider Internal Medicine
PROC: 4A023N7 Measurement of Cardiac Sampling and Pressure, Left Heart, Percutaneous Approach (ICD-10-PCS; CPT 93452; principal; 2024-11-16 09:45)
DX: I25.10 Atherosclerotic heart disease of native coronary artery without angina pectoris (principal); R93.1 Abnormal findings on diagnostic imaging of heart and coronary circulation; I50.20 Unspecified systolic (congestive) heart failure; I48.91 Unspecified atrial fibrillation; R94.39 Abnormal result of other cardiovascular function study; R94.31 Abnormal electrocardiogram [ECG] [EKG]; Z79.890 Hormone replacement therapy; Z79.01 Long term (current) use of anticoagulants; Z79.899 Other long term (current) drug therapy; Z88.2 Allergy status to sulfonamides; Z88.8 Allergy status to other drugs, medicaments and biological substances
CPT/HCPCS: 93458; 80048; 85025; 99152; C1725; C1769; J1200; J1644; J3010; J7040; Q9967

== ENCOUNTER 2025-03-01 14:25 | Outpatient (CLI) | payer MEDICARE, MEDICAID, SELFPAY ==
--- NOTE | 2025-03-01 14:30 | CA_ITS ---
APPROVED REPORT EXAM: Limited 2D Echocardiogram Valance Cutter: Christie Corrales RVT Ht: 5 ft 0 in Wt: 148lbs BSA: 1.64 BP: 103/58 mmHg Indications: HFrEF,EF CHECK M-Mode Dimensions RVDd 3.17 cm (0.9-2.6) LA Diam 4.40 cm (1.9-4.0) LVDd 4.93 cm (3.5-5.7) LVDs 3.97 cm (3.5-5.7) IVSd 0.88 cm (0.6-1.1) PWd 0.68 cm (0.6-1.1) EF (Teich) 39.90% FS 19.50% EDV (Teich) 114.40 mL ESV (Teich) 68.80 mL Other Information Study Quality: Fair Conclusion This is a limited TTE to evaluate for LV systolic function. Limited windows are obtained. The left ventricle is normal in size. There is increased LV wall thickness. There is moderate to severe global hypokinesis present. The septum is asynchronous. LVEF is 30%. Electronically signed by : Yaneth Bergeron MD 03/03/2025 23:09:55
== END 2025-03-01 23:59 | disposition home or self-care (01) ==
LOC: RT 14:27
PROVIDERS: PCP Family Medicine; Visit Provider Nurse Practitioner Family
DX: I50.20 Unspecified systolic (congestive) heart failure (principal); I25.10 Atherosclerotic heart disease of native coronary artery without angina pectoris; E78.5 Hyperlipidemia, unspecified; R94.31 Abnormal electrocardiogram [ECG] [EKG]; R93.1 Abnormal findings on diagnostic imaging of heart and coronary circulation
CPT/HCPCS: 93308